=== PATIENT | male | born 1980 | race Caucasian/White ===

== ENCOUNTER 2019-12-10 04:23 | Emergency (ER) | payer SELFPAY ==
--- NOTE | ~2019-12-10 | XR_ITS ---
EXAMINATION: XR chest 2V DATE: 12/10/2019 05:44 INDICATION: Left upper chest pain TECHNIQUE: PA and lateral views of the chest are obtained. COMPARISON: None available FINDINGS: The lungs are free of acute opacities. There is no pleural effusion or pneumothorax. The ca rdiomediastinal silhouette is normal. The visualized bones and soft tissues are unremarkable. IMPRESSION: 1. No acute cardiopulmonary abnormality. Reviewed, dictated and finalized at location A. [employer]ICAL DOCTOR
[2019-12-10 04:27] VITALS: BP 131/86; PULSE 67; RESP 21; TEMP 36.8; O2SAT 98
--- NOTE | 2019-12-10 04:33 | ED.CHESTPAIN ---
HPI - Chest Pain General Chief Complaint: Chest Pain Stated Complaint: cp Time Seen by Provider: 12/10/19 04:28 Source: RN notes reviewed History of Present Illness HPI narrative: Patient presents to emergency department from home for chest pain. Patient states pain began 3 days ago. The pain is located over the left anterior superior chest on the left side. Patient states pain is worse with deep inspiration and coughing and states he has been coughing is been nonproductive. He denies any fevers or chills shortness of breath abdominal pain nausea vomiting or any other symptoms. Patient states the pain is been constant since onset denies any other symptoms at this time Related Data Allergies Allergy/AdvReac Type Severity Reaction Status Date / Time No Known Allergies Allergy Verified 12/10/19 04:31 Review of Systems Review of Systems: Narrative: Gen.: Denies fevers or chills ENT: Denies congestion Respiratory: Denies shortness of breath reports cough h CV: See HPI GI: Denies abdominal pain nausea, emesis or diarrhea denies burning, urgency, frequency or hematuria Musculoskeletal: Denies back pain or muscle pain Neuro: Denies numbness, tingling, weakness or focal weakness Skin: Denies rash Except as documented, all other systems reviewed and negative PMFSH Past Medical History Medical History (Updated 12/10/19 @ 05:56 by Kj Zavala DO) Epilepsy Social History Social History (Updated 12/10/19 @ 04:34 by Kj Zavala DO) Smoking packs per day: 1 Smoking cigarettes per day: 20.0 Exam Narrative: Exam Narrative: APPEARANCE: No acute distress, nontoxic, resting in bed EYES: EOMI HEENT: Normocephalic, atraumatic, OMM RESPIRATORY: No respiratory distress mild wheezing upper lung christopher, no rhonchi or rales CARDIOVASCULAR: Regular rate and rhythm without murmurs rubs or gallops. Chest: Tender palpation over left anterior superior chest just to the left of the sternum and region of ribs 3 and 4 with point tenderness present, no overlying erythema or ecchymosis, pain increased with deep inspiration , coughing and fly motion of the chest ABDOMINAL: Soft, nontender, nondistended, no rebound or guarding MUSCULOSKELETAl: Moves all extremities. No clubbing, cyanosis or edema. NEURO: Awake and alert. Following commands, speech normal, no focal deficits SKIN:: Warm, dry. No rashes lesions or abrasions PSYCHIATRIC: Normal affect/mood, Course Course Emergency Course: Patient meets PERC rule criteria and no further testing needs to be performed for pulmonary embolism. Patient states pain is resolved following Toradol Discussed with patient results of workup and diagnosis. Discussed need for follow-up with primary care, proper use of medication, and reasons to return to the emergency department. Patient understands and agrees to current treatment plan Vital Signs Vital signs: Vital Signs Temperature 98.2 F 12/10/19 04:27 Pulse Rate 67 12/10/19 04:27 Respiratory Rate 21 H 12/10/19 04:27 Blood Pressure 131/86 12/10/19 04:27 Pulse Oximetry 98 12/10/19 04:27 Temperature 98.2 F 12/10/19 05:16 Pulse Rate 66 12/10/19 04:52 Respiratory Rate 21 H 12/10/19 04:27 Blood Pressure 131/86 12/10/19 04:27 Pulse Oximetry 95 12/10/19 04:52 MDM - Chest Pain MDM Narrative Medical decision making narrative: Patient's EKGs and labs are without significant high risk changes. Cardiac risk factors reviewed. Patient is felt likely low risk for ACS and reasonable for further risk stratification testing as an outpatient. Pain was not sudden or maximal in onset without tearing or ripping quality. No other signs of symptoms suggest aortic dissection. A low-risk Wells criteria is noted, PE is felt to be unlikely. No pneumonia seen on evaluation today. Patient is felt to be a reasonable candidate for continued evaluation as an outpatient. Pain is been constant for the past 3 days with negative troponin i
[2019-12-10 04:46] VITALS: BP 117/79; PULSE 70; RESP 14; O2SAT 96
[2019-12-10] MEDS: methylPREDNISolone SOD SUCC 125 MG VIAL IV PUSH (04:46)
[2019-12-10] MEDS: KETOROLAC 30 MG/ML VIAL (*BKC) IV PUSH (04:46)
[2019-12-10 04:52] VITALS: PULSE 66; O2SAT 95
--- NOTE | 2019-12-10 04:54 | ECG_ITS ---
Measurements Intervals Bailey Rate: 70 P: 47 OK: 164 QRS: 51 QRSD: 112 T: 48 QT: 397 QTc: 429 Interpretive Statements SINUS RHYTHM WITH SINUS ARRHYTHMIA INCOMPLETE RIGHT BUNDLE BRANCH BLOCK BASELINE ARTIFACT- V3-V6 BORDERLINE ECG Electronically Signed On 12-10-2019 6:55:16 RN PHYSICIAN OFFICE by Hang Madden D.O.
[2019-12-10 04:58] LABS: Basophils Absolute Auto 0.1 K/mm3 (0.0-0.1); Basophils Percent Auto 0.5 % (0.2-1.2); Eosinophils Absolute Auto 0.3 K/mm3 (0-0.3); Eosinophils Percent Auto 2.7 % (0-4.4); Hematocrit 45.4 % (42.0-52.0); Hemoglobin 15.1 g/dL (14.0-18.0); Immature Granulocyte Absolute 0.03 K/mm3 (0.00-0.031); Immature Granulocyte Percent A 0.3 % (0-0.5); Lymphocytes Absolute Auto 2.46 K/mm3 (0.9-3.2); Lymphocytes Percent Auto 25.3 % (18.3-44.2); Mean Corpuscular HGB Conc 33.3 g/dl (32-36); Mean Corpuscular Volume 93.2 fl (80-100); Mean Platelet Volume 10.5 fl (7.4-10.4); Monocytes Percent Auto 9.8 % (2.6-8.5); Neutrophils Percent Auto 61.4 % (45.5-73.1); Platelet Count Result 266 k/mm3 (150-375); Red Blood Count 4.87 M/mm3 (4.6-6.20); White Blood Count 9.7 K/mm3 (4.5-10.0)
[2019-12-10 05:01] VITALS: BP 115/77; PULSE 68; RESP 12; O2SAT 94
[2019-12-10 05:08] LABS: Alanine Aminotransferase 15 U/L (4-50); Albumin Level 4.2 g/dL (3.5-5.1); Alkaline Phosphatase 79 U/L (38-126); Aspartate Amino Transferase 20 U/L (17-59); Bilirubin,Total 0.5 mg/dL (0.2-1.3); Blood Urea Nitrogen 9 mg/dL (9-20); Calcium 8.8 mg/dL (8.4-10.2); Carbon Dioxide 24 mmol/L (22-30); Chloride 104 mmol/L (98-107); Estimated CRCL calculation 102 ml/min; Estimated Glomerular Filt Rate > 60; Glucose 118 mg/dL (75-110); Potassium 3.5 mmol/L (3.4-5.0); Sodium 139 mmol/L (137-145)
[2019-12-10 05:16] VITALS: TEMP 36.8
[2019-12-10 05:20] LABS: Troponin I < 0.012 ng/mL (0.000-0.034)
[2019-12-10 05:30] LABS: INR 0.8; Prothrombin Time 11.1 Seconds (11.1-14.7)
[2019-12-10 05:31] LABS: Partial Thromboplastin Time 30.3 SECONDS (22.3-36.8)
[2019-12-10 06:14] VITALS: BP 122/83; PULSE 66; RESP 17; TEMP 36.8; O2SAT 96
== END 2019-12-10 06:17 | disposition home or self-care (01) ==
PROVIDERS: Emergency Provider Emergency Medicine
DX: R07.89 Other chest pain (principal); F17.210 Nicotine dependence, cigarettes, uncomplicated
CPT/HCPCS: 36415; 71046; 80053; 84484; 85025; 85610; 85730; 87804; 93005; 96374; 96375; 99284; J1885; J2930

== ENCOUNTER 2021-10-02 10:27 | Outpatient (CLI) | payer OTHER, SELFPAY ==
--- NOTE | ~2021-10-02 | XR_ITS ---
EXAMINATION:XR cervical spine 4-5V DATE: 10/02/2021 10:53 INDICATION: Neck pain TECHNIQUE: AP, lateral, lateral swimmers and odontoid views of the cervical spine are provided. COMPARISON: None FINDINGS: There is reversal of normal cervical lordosis centered at C5-6. The odontoid is intact. No fracture is identified. The vertebral body heights are normal. There is mild loss of intervertebral d isc space height at C4-5 and C5-6. Prevertebral soft tissues are normal. IMPRESSION: 1. Mild cervical spondylosis without acute findings. Reviewed, dictated and finalized at location A. [employer]PER[employer]
== END 2021-10-02 10:28 ==
PROVIDERS: PCP Family Medicine; Visit Provider Family Medicine
DX: M47.892 Other spondylosis, cervical region (principal)
CPT/HCPCS: 72050

== ENCOUNTER 2021-10-02 16:49 | Emergency (ER) | payer OTHER, SELFPAY ==
--- NOTE | 2021-10-02 16:55 | ED.NECK ---
HPI - Neck Pain/Injury General Chief Complaint: Neck Pain/Injury Stated Complaint: Rt Shoulder and Neck Pain Time Seen by Provider: 10/02/21 16:55 Source: patient, RN notes reviewed and old records reviewed Mode of arrival: ambulatory Limitations: no limitations History of Present Illness HPI Narrative: 41-year-old male presents to the [facility] with complaints of continued and increasing pain to the lateral right neck radiating down the right arm for the last 3 months. Had an x-ray done by primary care provider. Was prescribed prednisone, started today. Had been on diclofenac which she states is not touching his pain. Requesting something stronger for pain. Was able to remove sweatshirt and movement of the arm noted. MD complaint: neck pain Onset (ago): month(s) Related Data Home Medications Medication Instructions Recorded Confirmed diclofenac sodium 75 mg PO BID 10/02/21 10/02/21 Allergies Allergy/AdvReac Type Severity Reaction Status Date / Time No Known Allergies Allergy Verified 10/02/21 16:55 Review of Systems Review of Systems: All systems reviewed & are unremarkable except as noted in HPI and below Constitutional: Constitutional: Reports no additional constitutional complaints, Denies chills and Denies fever(s) Eyes: Eyes: Reports no additional eye complaints ENT: Reports system reviewed and no additional complaints, except as documented Cardiovascular: Cardiovascular: Reports no additional cardiovascular complaints Respiratory: Respiratory: Reports no additional respiratory complaints Gastrointestinal: Gastrointestinal: Reports no additional gastrointestinal complaints Genitourinary: Genitourinary: Reports no additional male genitourinary complaints Musculoskeletal: Musculoskeletal: Reports as per HPI and Denies back pain Comments: Right lateral neck pain radiating down right arm Integumentary/Breasts: Skin/Breast: Reports system reviewed and no additional complaints, except as docu Neurologic: Reports system reviewed and no additional complaints, except as documented, Denies dizziness, Denies headache(s), Denies focal weakness, Denies numbness and Denies weakness Psychiatric: Psychiatric: Reports no additional psychiatric complaints Allergic/Immunologic: Allergic/Immunologic: Reports no additional allergic/immunologic complaints PMFSH Past Medical History Medical History (Updated 10/02/21 @ 17:09 by Daphne Leahy) Epilepsy Surgical History Surgical History (Updated 10/02/21 @ 17:09 by Daphne Leahy) No pertinent past surgical history Social History Social History (Updated 10/02/21 @ 17:09 by Daphne Leahy) Smoking packs per day: 1 Smoking cigarettes per day: 20.0 Gender identity (if verbalized by the patient): Male Comments At the time of my signature, I reviewed and agree with the nursing past medical, surgical, social, and family history. There is no relevant family history pertinent to the patient complaint. Exam Const: General: healthy appearing, no acute distress and alert Nutritional Appearance: well nourished Orientation/consciousness: patient oriented x3 Limitations: no limitations HENMT: Head: normal to inspection Ears: external ears normal Eyes: Pupils: Equal, round and reactive pupils present Neck: Neck: normal visual inspection, no lymphadenopathy and no meningeal signs Chest: Chest palpation & inspection: normal inspection of the chest Resp: Effort & Inspection: normal respiratory effort Cardio: Rate: regular rate Rhythm: regular rhythm Back/Spine/Pelvis: Back: no CVA tenderness, No erythema, No ecchymosis and No back tenderness Cervical Spine: normal cervical lordosis, pain with cervical ROM, No Cervical spine tenderness and No step off deformity Thoracic/Lumbar Spine: thoracic and lumbar spine normal to inspection, thoraco-lumbar ROM normal, No thoraco-lumbar spasm, No thoracic spinal tenderness and No lumbar spinal tenderness Pelvis: n
[2021-10-02 16:58] VITALS: BP 142/83; PULSE 82; RESP 18; TEMP 37.3; O2SAT 98
== END 2021-10-02 17:08 | disposition home or self-care (01) ==
PROVIDERS: Emergency Provider Nurse Practitioner; PCP Family Medicine
DX: M54.2 Cervicalgia (principal); M54.12 Radiculopathy, cervical region; F17.210 Nicotine dependence, cigarettes, uncomplicated
CPT/HCPCS: 99213; G0463